=== PATIENT | male | born 1995 | race African-American/Black ===

== ENCOUNTER 2020-01-05 08:17 | Emergency (ER) | payer BC, SELFPAY ==
--- NOTE | ~2020-01-05 | XR_ITS ---
EXAMINATION: XR chest 1V portable DATE: 01/05/2020 10:31 INDICATION: Leukocytosis, sore throat and body aches TECHNIQUE: frontal view of the chest was obtained. COMPARISON: None FINDINGS: The lungs are clear with no focal airspace opacities, pulmonary edema, pleural effusion or pneumothor ax. The cardiomediastinal silhouette is normal. Visualized bones and soft tissues are unremarkable. IMPRESSION: 1. Normal chest radiograph. Reviewed, dictated and finalized at location B. IMPRESSION: 1. Normal chest radiograph.
--- NOTE | ~2020-01-05 | CT_ITS ---
EXAMINATION: CT soft tissue neck w con DATE: 01/05/2020 11:32 INDICATION: Sore throat. Vomiting. TECHNIQUE: Computed tomography (CT) of the neck was performed with 75 mL Omnipaque-350 intravenous co ntrast. Automated exposure control and iterative reconstruction technique were employed. The dose-braxton gth product was 576.23 mGy-cm. COMPARISON: None FINDINGS: There is mild emphysema. There is anteroposterior elongation of the ocular globes. The missy faye tonsils, lingual tonsils, and adenoids are enlarged. No abscess. The epiglottis is normal. There is mild bilateral high internal jugular chain lymphadenopathy. For example, a left high internal jug ular node measures 19 x 14 mm. There is plate and screw fixation of the mandible. IMPRESSION: 1. Enlarged palatine tonsils, lingual tonsils, and adenoids. No abscess. 2. Mild bilateral high internal jugular chain lymphadenopathy, likely reactive. Reviewed, dictated and finalized at location A.
[2020-01-05 08:21] VITALS: BP 148/92; PULSE 110; RESP 18; TEMP 36.7; O2SAT 100
[2020-01-05 08:27] VITALS: PULSE 108
[2020-01-05 08:33] LABS: Basophils Absolute Auto 0.1 K/mm3 (0.0-0.1); Basophils Percent Auto 0.4 % (0.2-1.2); Eosinophils Percent Auto 0.1 % (0-4.4); Hematocrit 41.8 % (42.0-52.0); Hemoglobin 14.4 g/dL (14.0-18.0); Immature Granulocyte Absolute 0.17 K/mm3 (0.00-0.031); Immature Granulocyte Percent A 0.7 % (0-0.5); Mean Corpuscular HGB Conc 34.4 g/dl (32-36); Mean Corpuscular Hemoglobin 30.6 pg (26-34); Mean Corpuscular Volume 88.7 fl (80-100); Monocytes Absolute Auto 1.5 K/mm3 (0.1-0.6); Monocytes Percent Auto 5.9 % (2.6-8.5); Neutrophils Absolute Auto 22.3 K/mm3 (1.3-6.7); Neutrophils Percent Auto 88.9 % (45.5-73.1); Platelet Count Result 286 k/mm3 (150-375); Red Blood Count 4.71 M/mm3 (4.6-6.20); Red Cell Distribution Width 13.2 % (11.5-14.5)
--- NOTE | 2020-01-05 08:36 | ED.GENADULT ---
HPI - General Adult General Chief complaint: Unspecified Stated complaint: vomiting, sore throat, body aches Time Seen by Provider: 01/05/20 08:31 Source: patient Mode of arrival: ambulatory Limitations: no limitations History of Present Illness HPI narrative: Patient presents with sore throat and general body aches and a lot of vomiting. He denies any fever, chills, exposure to anybody with known COVID-19. Patient also denies any shortness of breath or chest pain. Related Data Allergies Allergy/AdvReac Type Severity Reaction Status Date / Time No Known Allergies Allergy Verified 01/05/20 08:26 Review of Systems Review of Systems: Narrative: CONSTITUTIONAL: Denies fever, chills, or sweats. EYES: Denies visual changes, redness, or discharge. ENT: Denies rhinorrhea, congestion, sore throat, or otalgia. CARDIOVASCULAR: Denies chest pain, palpitations, or edema. RESPIRATORY: Denies cough or dyspnea. GASTROINTESTINAL: Denies abdominal pain, nausea, vomiting, or diarrhea. GENITOURINARY: Denies dysuria or hematuria. SKIN: Denies rash or itching. MUSCULOSKELETAL: Denies back pain, joint pain, or myalgia. NEUROLOGIC: Denies headache, numbness, or weakness. PSYCHIATRIC: Denies anxiety or depression. [facility] Social History Social History (Updated 01/05/20 @ 09:02 by Keely El MD) Alcohol intake: current Gender identity (if verbalized by the patient): Male Exam Narrative: Exam Narrative: General appearance: Well-developed, well-nourished Skin: Normal color Head: Normocephalic, nontraumatic Eyes: Clear conjunctiva ENT: Slight erythematous oropharynx, no lymphadenopathy Neck: Supple, nontender Chest and respiratory: Airway patent, no respiratory distress, no accessory muscle use Heart: Regular rate/rhythm Abdomen: Soft, nontender, no organomegaly, quiet bowel sounds Vascular: Normal peripheral pulses, normal capillary refill. Musculoskeletal: Normal range of motion, nontender back Neurologic: Alert and oriented ?3, [employer] is normal as tested, no gross motor deficit Course Course Emergency Course: Stable Consultations Consultation #1: Dr. Velez Discharged on Augmentin and prednisone Date: 01/05/20 Time: 12:02 Vital Signs Vital signs: Vital Signs Temperature 36.7 C 01/05/20 08:21 Pulse Rate 110 H 01/05/20 08:21 Respiratory Rate 18 01/05/20 08:21 Blood Pressure 148/92 H 01/05/20 08:21 Pulse Oximetry 100 01/05/20 08:21 Temperature 37.9 C H 01/05/20 10:52 Pulse Rate 101 H 01/05/20 10:52 Respiratory Rate 18 01/05/20 10:52 Blood Pressure 152/72 H 01/05/20 10:52 Pulse Oximetry 99 01/05/20 10:52 Medical Decision Making MDM Narrative Medical decision making narrative: Sore throat, and body aches. My concern viral infection versus strep throat. Rapid strep, mononucleosis ordered. Further plan to follow Differential Diagnosis Differential Diagnosis: Rapid strep, mononucleosis, COVID-19 infection Vital Signs Vital Signs: Vital Signs Temperature 36.7 C 01/05/20 08:21 Pulse Rate 110 H 01/05/20 08:21 Respiratory Rate 18 01/05/20 08:21 Blood Pressure 148/92 H 01/05/20 08:21 Pulse Oximetry 100 01/05/20 08:21 Temperature 37.9 C H 01/05/20 10:52 Pulse Rate 101 H 01/05/20 10:52 Respiratory Rate 18 01/05/20 10:52 Blood Pressure 152/72 H 01/05/20 10:52 Pulse Oximetry 99 01/05/20 10:52 Lab Data Result diagrams: 01/05/20 08:28 01/05/20 08:28 Labs: Lab Results 01/05/20 01/05/20 01/05/20 Range/Units 08:27 08:28 08:28 WBC 25.0 H (4.5-10.0) K/mm3 RBC 4.71 (4.6-6.20) M/mm3 Hgb 14.4 (14.0-18.0) g/dL Hct 41.8 L (42.0-52.0) %
[2020-01-05 08:52] LABS: Anion Gap 9 mmol/L (8-16); Blood Urea Nitrogen 10 mg/dL (9-20); Calcium 9.1 mg/dL (8.4-10.2); Carbon Dioxide 25 mmol/L (22-30); Chloride 100 mmol/L (98-107); Estimated CRCL calculation 119 ml/min; Estimated Glomerular Filt Rate > 60; Glucose 149 mg/dL (75-110); Potassium 3.2 mmol/L (3.4-5.0); Sodium 134 mmol/L (137-145)
[2020-01-05 09:14] VITALS: BP 129/79; PULSE 101; RESP 20; O2SAT 99
[2020-01-05 09:17] LABS: Monoscreen Negative (Negative); Negative Monotest Control Negative (Negative); Positive Monotest Control Positive (Positive)
--- NOTE | 2020-01-05 09:51 | ECG_ITS ---
Measurements Intervals [place] Rate: 104 P: 53 GA: 172 QRS: 81 QRSD: 98 T: -3 QT: 304 QTc: 400 Interpretive Statements SINUS TACHYCARDIA BORDERLINE ST-T WAVE ABNORMALITY- INFERIOR LEADS ST ELEVATION IN ANTEROLAT/HIGH LAT LEADS- EARLY REPOLARIZATION, PERICARDITIS OR INJURY ABNORMAL ECG Electronically Signed On 01-05-2020 10:25:55 CDT by Julian Thomas D.O.
[2020-01-05] MEDS: SODIUM CHLORIDE 0.9% IV 1,000 ML 999 ML IV CONT ×2 (09:58→11:06)
[2020-01-05 09:59] VITALS: BP 141/85; PULSE 109; RESP 18; O2SAT 98
[2020-01-05 10:07] LABS: INR 1.1; Prothrombin Time 13.4 Seconds (11.1-14.7)
[2020-01-05 10:08] LABS: Partial Thromboplastin Time 29.1 SECONDS (22.3-36.8)
[2020-01-05 10:14] LABS: Alanine Aminotransferase 23 U/L (4-50); Albumin Level 4.4 g/dL (3.5-5.1); Alkaline Phosphatase 75 U/L (38-126); Aspartate Amino Transferase 27 U/L (17-59); Bilirubin,Total 1.3 mg/dL (0.2-1.3)
[2020-01-05 10:28] LABS: Add Urine Microscopic? YES; Appearance Urine Clear (Clear); Bilirubin Urine Negative (Negative); Blood Urine Negative (Negative); Color Urine Yellow (Yellow); Glucose Urine UA Negative (Negative); Ketones Urine Negative (Negative); Leukocyte Esterase Ur Negative LEU/UL (Negative); Mucus Urine Few /lpf; Nitrate Urine Negative (Negative); Protein Urine 1+ mg/dL (Negative); Specific Grav Ur 1.028 (1.001-1.035)
[2020-01-05 10:34] LABS: Lactic Acid Reflex 1.1 mmol/L (0.7-2.1)
[2020-01-05 10:45] LABS: Amphetamine Screen Urine Negative (Negative); Barbiturate Screen Urine Negative (Negative); Benzodiazepines Screen Urine Negative (Negative); Cannabinoid Screen Urine Positive (Negative); Cocaine Screen Urine Negative (Negative); Methadone Screen Urine Negative (Negative); Opiate Screen Urine Negative (Negative); Phencyclidine Screen Urine Negative (Negative)
[2020-01-05 10:52] VITALS: BP 152/72; PULSE 101; RESP 18; TEMP 37.9; O2SAT 99
[2020-01-05] MEDS: ACETAMINOPHEN 500 MG TABLET 1000 MG PO (11:06)
[2020-01-05] MEDS: KETOROLAC 30 MG/ML VIAL (*BKC) IV PUSH (11:07)
[2020-01-05] MEDS: ONDANSETRON INJ 4 MG/2 ML VIAL IV PUSH (11:07)
[2020-01-05] MEDS: AMOXICILLIN/CLAVULANATE K 875-125 MG TAB 1 TABLET PO (12:35)
[2020-01-05 18:38] LABS: SARS-CoV-2 RNA PCR Negative
== END 2020-01-05 12:39 | disposition home or self-care (01) ==
PROVIDERS: Emergency Provider Emergency Medicine
DX: J03.80 Acute tonsillitis due to other specified organisms (principal); B96.89 Other specified bacterial agents as the cause of diseases classified elsewhere; Z20.828 Contact with and (suspected) exposure to other viral communicable diseases
CPT/HCPCS: 36415; 70491; 71045; 80048; 80076; 80307; 81001; 83605; 85025; 85610; 85730; 86140; 86308; 87040; 87081; 87635; 87880; 93005; 96361; 96374; 96375; 99284; A9270; C9803; J1885; J2405; J7030; Q9967; U0003